=== PATIENT | male | born 1960 | race Two or more races ===

== ENCOUNTER → 2024-02-23 | Outpatient (CLI) | payer OTHER ==
[2024-02-23] MEDS: REGADENOSON 0.4 MG/5 ML SYRG IV ONE ×2 (10:55→10:56)
--- NOTE | 2024-02-23 16:29 | DVHSR ---
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 No dynamic EKG changes was noted to suggest isc hemia during the stress part. Resting and stress images shows a fixed defect in the entire inferior wall with a minimal residual is chemia getting old inferior infarction. Moderate to severely reduced left ventricular systolic function at 36%. 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 Moderate to severely reduced left ventricular systolic function at 36% low risk study. NM EXAM: Myocardial Perfusion REST/STRESS Imaging Protocol: Rest Tc-99m/Stress Tc-99m 1 day Resting Data Rest SPECT myocardial perfusion imaging was performed in supine position 60 minutes following the int ravenous injection of 13.9 mCi of Tc-99m Sestamibi. Time of rest injection: 0945 Time of rest imagin Administration Route: IV Administration Site: Left AC Pharmacologic Stress Pharmacologic stress test was performed by injecting Regadenoson 0.4 mg IV push followed by the intra venous injection of 34.3 mCi of Tc-99m Sestamibi. Time of stress injection: 1058 Time of stress imagin Administration Route: IV Administration Site: Left AC Gated Stress SPECT was performed 60 minutes after stress injection. The images were gated to evaluate regional wall motion and calculate left ventricular ejection fracti on. Stress only was performed in the Supine position. Perfusion There is a large area of severely reduced uptake in the entire segment of the inferior wall which is seen on the stress images as well as the resting images. This area is akinetic and is most consistent with myocardial scar. 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 No dynamic EKG changes was noted to suggest isc hemia during the stress part. Resting and stress images shows a fixed defect in the entire inferior wall with a minimal residual is chemia getting old inferior infarction. Moderate to severely reduced left ventricular systolic function at 36%. 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 Moderate to severely reduced left ventricular systolic function at 36% low risk study.
== END | disposition home or self-care (01) ==
LOC: XYW 09:32
PROVIDERS: ATTEND Specialist
DX: I11.0 Hypertensive heart disease with heart failure (principal); I50.9 Heart failure, unspecified
CPT/HCPCS: 78452; 93017; A9500; J2785